=== PATIENT | male | born 1995 | race Caucasian/White ===

== ENCOUNTER 2021-02-12 09:52 | Inpatient (IN) | payer OTHER ==
[2021-02-12] MEDS ORDERED: Acetaminophen 500 MG TAB ONE (10:30)
[2021-02-12] MEDS ORDERED: Ondansetron PF 4 MG/2 ML Vial ONE (10:30)
[2021-02-12] MEDS ORDERED: Dexamethasone 10 MG/ML VIAL ONE (10:30)
[2021-02-12] MEDS ORDERED: Albuterol 200 PUFF (6.7GM INHALER) ONE (10:30)
[2021-02-12 10:39] LABS: #Basophils 0.1 thou/uL (0.0-0.2); #Lymphocytes 1.3 thou/uL (1.20-3.40); #Monocytes 0.8 thou/uL (0.11-0.59); #Neutrophils 7.6 thou/uL (1.40-6.50); %Basophils 0.7 % (0.0-1.0); %Eosinophils 0.1 % (0.0-10.0); %Lymphocytes 13.5 % (21.0-51.0); %Monocytes 7.8 % (0.0-10.0); %Neutrophils 77.9 % (42.0-75.0); Hemoglobin 14.8 g/dL (14.0-18.0); Mean Corpuscular HGB CONC 33.9 g/dL (32.0-36.0); Mean Corpuscular Volume 85.7 fL (78.0-98.0); Mean Platelet Volume 8.4 fL (7.4-10.4); Platelet Count 253 thou/uL (130-400); RBC Distribution Width 11.9 % (11.5-14.5); Red Blood Cell (RBC) Count 5.09 mill/uL (4.70-6.10); White Blood Cell (WBC) Count 9.7 thou/uL (4.8-10.8)
[2021-02-12 10:59] LABS: ALT (SGPT) 46 U/L (8-55); AST (SGOT) 49 U/L (5-34); Albumin 4.2 g/dL (3.5-5.0); Alkaline Phosphatase 50 U/L (40-110); Anion Gap 15 mmol/L (10-20); BUN (Urea Nitrogen) 12 mg/dL (8.9-20.6); Bilirubin, Total 0.7 mg/dL (0.2-1.2); Calc. Creatinine Clearance 0 mL/min (70-130); Calcium 8.5 mg/dL (7.8-10.44); Carbon Dioxide 26 mmol/L (22-29); Chloride 102 mmol/L (98-107); Globulin 3.2 g/dL (2.4-3.5); Glucose 111 mg/dL (70-105); Protein, Total 7.4 g/dL (6.0-8.3); Sodium 140 mmol/L (136-145)
[2021-02-12 11:47] LABS: SARS-CoV-2 NAA Rapid Test DETECTED (NotDetected)
[2021-02-12] MEDS ORDERED: Sodium Chloride 0.9% 100 ML ONE (12:33)
[2021-02-12] MEDS ORDERED: Cefepime 1 GM VIAL ONE (12:33)
[2021-02-12] MEDS ORDERED: Vancomycin 1 GM/200 ML BAG ONE (12:33)
[2021-02-12] MEDS ORDERED: Enoxaparin Sodium 100 MG/ML SYRINGE ONE ×2 (13:27→13:28)
[2021-02-12] MEDS ORDERED: Enoxaparin Sodium 60 MG/0.6 ML SYRINGE ONE (13:46)
[2021-02-12] MEDS ORDERED: Acetaminophen 325 MG TAB PO PRN (13:54)
[2021-02-12] MEDS ORDERED: Acetaminophen 650 MG Suppository PR PRN (13:54)
[2021-02-12] MEDS ORDERED: Ondansetron PF 4 MG/2 ML Vial IVP PRN (13:54)
[2021-02-12] MEDS ORDERED: Ondansetron ODT 4 MG TAB PO PRN (13:54)
[2021-02-12] MEDS ORDERED: Guaifenesin DM 100-10/5 ML UDCUP PO PRN (13:54)
[2021-02-12] MEDS ORDERED: Albuterol Sulfate 2.5 mg/3 ml Neb EZPAP PRN (13:57)
[2021-02-12 15:47] VITALS: BMI 35.9
[2021-02-12] MEDS ORDERED: Albuterol 200 PUFF (6.7GM INHALER) INH PRN (16:26)
[2021-02-12] MEDS ORDERED: Potassium Chloride 20 MEQ TAB PO SCH (16:30)
[2021-02-12] MEDS: Enoxaparin Sodium 120 MG/0.8 ML SYRINGE SC SCH (20:25)
[2021-02-12] MEDS ORDERED: REMDESIVIR (EUA) 200 MG in Sodium Chloride 0.9% 250 ML 210 ML IV SCH (22:00)
[2021-02-12] MEDS: VANCOMYCIN 1.75 GM/350 ML BAG 1.75 GM in Premix Bag 1 BAG IVPB SCH (22:40)
[2021-02-13] MEDS ORDERED: Cefepime 2 GM in Sodium Chloride 0.9% 100 ML IVPB SCH (01:00)
[2021-02-13 05:15] LABS: #Basophils 0.1 thou/uL (0.0-0.2); #Monocytes 0.7 thou/uL (0.11-0.59); #Neutrophils 5.3 thou/uL (1.40-6.50); %Basophils 1.5 % (0.0-1.0); %Eosinophils 0.1 % (0.0-10.0); %Lymphocytes 24.7 % (21.0-51.0); %Monocytes 8.6 % (0.0-10.0); %Neutrophils 65.1 % (42.0-75.0); Hemoglobin 13.8 g/dL (14.0-18.0); Mean Corpuscular HGB CONC 32.5 g/dL (32.0-36.0); Mean Corpuscular Hemoglobin 28.2 pg (27.0-31.0); Mean Corpuscular Volume 86.6 fL (78.0-98.0); Mean Platelet Volume 8.5 fL (7.4-10.4); Platelet Count 286 thou/uL (130-400); RBC Distribution Width 11.9 % (11.5-14.5); Red Blood Cell (RBC) Count 4.88 mill/uL (4.70-6.10); White Blood Cell (WBC) Count 8.1 thou/uL (4.8-10.8)
[2021-02-13 05:23] LABS: Anion Gap 16 mmol/L (10-20); BUN (Urea Nitrogen) 11 mg/dL (8.9-20.6); Calc. Creatinine Clearance 212 mL/min (70-130); Carbon Dioxide 21 mmol/L (22-29); Chloride 108 mmol/L (98-107); Glucose 127 mg/dL (70-105); Potassium 3.4 mmol/L (3.5-5.1); Sodium 142 mmol/L (136-145)
[2021-02-13 05:25] LABS: ALT (SGPT) 45 U/L (8-55); AST (SGOT) 38 U/L (5-34); Albumin 3.6 g/dL (3.5-5.0); Alkaline Phosphatase 46 U/L (40-110); Bilirubin, Direct 0.3 mg/dL (0.1-0.3); Bilirubin, Total 0.5 mg/dL (0.2-1.2); Protein, Total 6.6 g/dL (6.0-8.3)
[2021-02-13] MEDS: VANCOMYCIN 1.75 GM/350 ML BAG 1.75 GM in Premix Bag 1 BAG IVPB SCH (06:00)
[2021-02-13] MEDS: Ascorbic Acid 500 mg Chewable Tablet PO SCH (08:15)
[2021-02-13] MEDS: Enoxaparin Sodium 120 MG/0.8 ML SYRINGE SC SCH ×2 (08:16→21:17)
[2021-02-13] MEDS: Dexamethasone 4 MG TAB PO SCH (08:16)
[2021-02-13] MEDS: Zinc Sulfate 220 MG CAP PO SCH (08:16)
[2021-02-13] MEDS ORDERED: REMDESIVIR (EUA) 100 MG in Sodium Chloride 0.9% 250 ML 230 ML IV SCH (22:00)
[2021-02-14 05:06] LABS: #Basophils 0.2 thou/uL (0.0-0.2); #Lymphocytes 2.4 thou/uL (1.20-3.40); #Monocytes 1.1 thou/uL (0.11-0.59); #Neutrophils 8.9 thou/uL (1.40-6.50); %Basophils 1.2 % (0.0-1.0); %Eosinophils 0.2 % (0.0-10.0); %Lymphocytes 18.8 % (21.0-51.0); %Monocytes 8.4 % (0.0-10.0); %Neutrophils 71.4 % (42.0-75.0); Hemoglobin 13.6 g/dL (14.0-18.0); Mean Corpuscular HGB CONC 33.4 g/dL (32.0-36.0); Mean Corpuscular Volume 86.9 fL (78.0-98.0); Mean Platelet Volume 8.5 fL (7.4-10.4); Platelet Count 380 thou/uL (130-400); RBC Distribution Width 11.8 % (11.5-14.5); Red Blood Cell (RBC) Count 4.69 mill/uL (4.70-6.10); White Blood Cell (WBC) Count 12.5 thou/uL (4.8-10.8)
[2021-02-14 05:30] LABS: Anion Gap 14 mmol/L (10-20); BUN (Urea Nitrogen) 12 mg/dL (8.9-20.6); Calc. Creatinine Clearance 231 mL/min (70-130); Carbon Dioxide 22 mmol/L (22-29); Chloride 108 mmol/L (98-107); Glucose 146 mg/dL (70-105); Potassium 3.4 mmol/L (3.5-5.1); Sodium 141 mmol/L (136-145)
[2021-02-14] MEDS: Enoxaparin Sodium 120 MG/0.8 ML SYRINGE SC SCH (08:30)
[2021-02-14] MEDS: Zinc Sulfate 220 MG CAP PO SCH (08:31)
[2021-02-14] MEDS: Dexamethasone 4 MG TAB PO SCH (08:31)
[2021-02-14] MEDS: Ascorbic Acid 500 mg Chewable Tablet PO SCH (08:31)
[2021-02-14] MEDS ORDERED: Iopamidol 370 76% 100 ML VIAL ONE (15:01)
[2021-02-15 05:33] LABS: #Basophils 0.1 thou/uL (0.0-0.2); #Lymphocytes 2.9 thou/uL (1.20-3.40); #Monocytes 1.3 thou/uL (0.11-0.59); #Neutrophils 10.9 thou/uL (1.40-6.50); %Eosinophils 0.2 % (0.0-10.0); %Lymphocytes 19.1 % (21.0-51.0); %Monocytes 8.6 % (0.0-10.0); %Neutrophils 71.1 % (42.0-75.0); Mean Corpuscular HGB CONC 32.5 g/dL (32.0-36.0); Mean Corpuscular Hemoglobin 28.1 pg (27.0-31.0); Mean Corpuscular Volume 86.4 fL (78.0-98.0); Mean Platelet Volume 8.2 fL (7.4-10.4); Platelet Count 467 thou/uL (130-400); RBC Distribution Width 11.9 % (11.5-14.5); Red Blood Cell (RBC) Count 4.62 mill/uL (4.70-6.10); White Blood Cell (WBC) Count 15.3 thou/uL (4.8-10.8)
[2021-02-15 06:00] LABS: Anion Gap 15 mmol/L (10-20); BUN (Urea Nitrogen) 15 mg/dL (8.9-20.6); Calc. Creatinine Clearance 240 mL/min (70-130); Calcium 8.2 mg/dL (7.8-10.44); Carbon Dioxide 22 mmol/L (22-29); Chloride 106 mmol/L (98-107); Glucose 137 mg/dL (70-105); Potassium 3.6 mmol/L (3.5-5.1); Sodium 139 mmol/L (136-145)
[2021-02-15] MEDS: Ascorbic Acid 500 mg Chewable Tablet PO SCH (07:50)
[2021-02-15] MEDS: Zinc Sulfate 220 MG CAP PO SCH (07:51)
[2021-02-15] MEDS: Dexamethasone 4 MG TAB PO SCH (07:51)
[2021-02-15] MEDS ORDERED: Enoxaparin Sodium 40 MG/0.4 ML SYRINGE SC SCH (09:00)
[2021-02-15 09:22] LABS: Hemoglobin 13.9 g/dL (14.0-18.0); Platelet Count 455 thou/uL (130-400)
[2021-02-15 11:03] VITALS: BP 120/72; TEMP 98
== END 2021-02-15 12:11 | disposition home or self-care (01) | DRG 871 ==
LOC: ERS 09:52 → 2SW 12:58
PROVIDERS: ADMIT Internal Medicine; ATTEND Internal Medicine
PROC: XW033E5 Introduction of Remdesivir Anti-infective into Peripheral Vein, Percutaneous Approach, New Technology Group 5 (ICD-10-PCS; principal; 2021-02-12)
PROC: 8E0ZXY6 Isolation (ICD-10-PCS; 2021-02-12)
DX: A41.9 Sepsis, unspecified organism (principal); U07.1 COVID-19; J12.82 Pneumonia due to coronavirus disease 2019; J96.01 Acute respiratory failure with hypoxia; E87.6 Hypokalemia; J45.909 Unspecified asthma, uncomplicated; Z88.1 Allergy status to other antibiotic agents; Z88.5 Allergy status to narcotic agent; Z88.0 Allergy status to penicillin; Z90.09 Acquired absence of other part of head and neck
CPT/HCPCS: 0240U; 36415; 71045; 71275; 80048; 80053; 80076; 82728; 83605; 84484; 85025; 85379; 86140; 87040; 93005; 96365; 96372; 96375; J0692; J1100; J1650; J2405; J3370; J3490; J7050; J8540; Q9967